=== PATIENT | male | born 1995 | race Two or more races ===

== ENCOUNTER 2017-05-20 00:56 | Emergency (ER) | payer MEDICAID ==
[~2017-05-20] VITALS: Ht 180.3 cm; Wt 95.3 kg
[2017-05-20 01:07] VITALS: BP 139/88
== END 2017-05-20 02:06 | disposition home or self-care (01) ==
LOC: ER 01:02
DX: F41.9 Anxiety disorder, unspecified (principal); R79.89 Other specified abnormal findings of blood chemistry; E11.9 Type 2 diabetes mellitus without complications; F42.9 Obsessive-compulsive disorder, unspecified; F84.0 Autistic disorder; F17.200 Nicotine dependence, unspecified, uncomplicated
CPT/HCPCS: 82962; 99284; A4606; Z7610

== ENCOUNTER 2017-10-21 00:21 | Emergency (ER) | payer MEDICAID ==
[~2017-10-21] VITALS: Ht 180.3 cm; Wt 79.4 kg
[2017-10-21 01:27] LABS: BASOPHILS % (AUTO) 0.4 % (0.0-2.0); EOSINOPHILS # (AUTO) 0.1 /CMM (0.0-0.7); EOSINOPHILS % (AUTO) 1.2 % (0.0-6.0); HEMATOCRIT 46 % (39-51); HEMOGLOBIN 15.8 g/dL (13.5-17.5); LYMPHOCYTES # (AUTO) 1.2 /CMM (0.8-4.8); LYMPHOCYTES % (AUTO) 14.2 % (20.0-44.0); MEAN CORPUSCULAR HEMOGLOBIN 32 PG (26.0-33.0); MEAN CORPUSCULAR HGB CONC 35 g/dl (31.0-36.0); MEAN CORPUSCULAR VOLUME 91 fL (80-96); MONOCYTES # (AUTO) 0.5 /CMM (0.1-1.30); MONOCYTES % (AUTO) 5.6 % (2.0-12.0); NEUTROPHILS # (AUTO) 6.5 /CMM (1.8-8.9); NEUTROPHILS % (AUTO) 78.6 % (43.0-81.0); PLATELET COUNT (AUTO) 222 /CMM (150-450); RDW COEFFICIENT OF VARIATION 13.8 (11.5-15.0); WHITE BLOOD COUNT (AUTO) 8.2 K/uL (4.3-11.0)
[2017-10-21 01:36] LABS: CALCIUM, SERUM 9.3 mg/dL (8.5-10.1); CARBON DIOXIDE 27 mmol/L (21-32); CHLORIDE 101 mmol/L (98-107); CREATININE 0.8 mg/dL (0.6-1.3); GLUCOSE 132 mg/dL (74-106); POTASSIUM 4.2 mmol/L (3.5-5.1); SODIUM SERUM 136 mmol/L (136-145); UREA NITROGEN, BLOOD 11 mg/dL (7-18)
[2017-10-21 01:42] LABS: ACETAMINOPHEN 0 ug/ml (10-30); ALANINE AMINOTRANSFERASE 37 U/L (12-78); ALBUMIN 3.8 g/dL (3.4-5.0); ALCOHOL, BLOOD < 3 mg/dL (0-0); ALKALINE PHOSPHATASE 71 U/L (46-116); ASPARTATE AMINOTRANSFERASE 14 U/L (15-37); BILIRUBIN,DIRECT 0.1 mg/dL (0.0-0.2); BILIRUBIN,TOTAL 0.4 mg/dL (0.2-1.0); SALICYLATE 3.4 mg/dL (2.8-20.0); TOTAL PROTEIN, SERUM 7.7 g/dL (6.4-8.2)
[2017-10-21 01:49] LABS: THYROID STIMULATING HORMONE 2.824 uIU/mL (0.358-3.74)
--- NOTE | 2017-10-21 02:16 | NUR ---
ART AT BEDSIDE FOR EVAL
[2017-10-21 03:13] VITALS: BP 160/87
== END 2017-10-21 03:14 | disposition home or self-care (01) ==
LOC: ER 00:24
DX: Z00.8 Encounter for other general examination (principal); E11.9 Type 2 diabetes mellitus without complications; F31.9 Bipolar disorder, unspecified
CPT/HCPCS: 36415; 80048; 80076; 80305; 80329; 84443; 85025; 99284; A4606; G0480 ×2; Z7610